=== PATIENT | female | born 1975 | race Caucasian/White ===

== ENCOUNTER 2017-07-03 11:26 | Emergency (ER) | payer OTHER ==
--- NOTE | 2017-07-03 12:21 | CR ---
Chest 1V Frontal INDICATION: sob FINDINGS: Comparison 04/20/2015. No change. Negative AP portable chest x-ray.
[2017-07-03] MEDS: Nitroglycerin 0.4 MG Tab.SL SL PRN ×3 (12:41→12:55)
[2017-07-03] MEDS ORDERED: Nitroglycerin/D5W 25 MG/250 ML BOTTLE IV SCH (12:45)
[2017-07-03] MEDS ORDERED: Ondansetron 4 MG/2 ML SDV IVPUSH ONE (12:55)
[2017-07-03] MEDS ORDERED: Acetaminophen 325 MG Tab PO ONE (13:02)
[2017-07-03 13:03] VITALS: BP 133/79
--- NOTE | 2017-07-03 13:12 | EDM.PDOC ---
ED HPI GENERAL MEDICAL PROBLEM - General Chief Complaint: Chest Pain Stated Complaint: CHEST PAIN Time Seen by Provider: 07/03/17 11:45 Source of Information: Reports: Patient History Limitations: Reports: No Limitations - History of Present Illness INITIAL COMMENTS - FREE TEXT/NARRATIVE: pt arrived with a history of pain between the shoulder blades and pressure on the chest. This was well relieved in the ambulance with nitro twice. Onset: Today, Other (pt has had a few other episodes in the past. ) Duration: Hour(s): Location: Reports: Chest, Other ( between the shoulder blades. 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: - Infectious Disease History Infectious Disease History: Reports: Chicken Pox - Past Surgical History HEENT Surgical History: Reports: Adenoidectomy, LASIK, Tonsillectomy, Other ( See Below) Other HEENT Surgeries/Procedures: nasal surgery Female Surgical History: Reports: Hysterectomy Other Musculoskeletal Surgeries/Procedures:: bilateral bunionectomy, ACL repair Social & Family History - Tobacco Use Smoking Status *Q: Never Smoker Second Hand Smoke Exposure: No - Caffeine Use Caffeine Use: Reports: Coffee, Soda, Tea - Alcohol Use Days Per Week of Alcohol Use: 0 Number of Drinks Per Day: 1 Total Drinks Per Week: 0 - Recreational Drug Use Recreational Drug Use: No ED ROS GENERAL - Review of Systems Review Of Systems: See Below Constitutional: Reports: No Symptoms HEENT: Reports: No Symptoms Respiratory: Reports: No Symptoms Cardiovascular: Reports: Chest Pain, Other (pt has chest pressure and pain between the shoulder blades. ) Endocrine: Reports: No Symptoms GI/Abdominal: Reports: No Symptoms : Reports: No Symptoms Musculoskeletal: Reports: No Symptoms Skin: Reports: No Symptoms Neurological: Reports: No Symptoms ED EXAM, GENERAL - Physical Exam Exam: See Below Free Text/Narrative:: pt arrived with a history of 2 hours of chest pressure and pain between the shoulder blades. She was given nitro in the ambulance and she had good relief within 5 minutes. After arrival here she had recurrent pain. She was given 3 nitros with relief and a nitro drip was hung. She does not have alot of risk factors neg for smoking, neg for elevated cholestrol and lipids, some family history, She does get nauseated when she gets the pain. Exam Limited By: No Limitations General Appearance: Alert, Anxious Ears: Normal TMs Nose: Normal Inspection Throat/Mouth: Normal Inspection Head: Atraumatic Neck: Normal Inspection Respiratory/Chest: No Respiratory Distress Cardiovascular: Regular Rate, Rhythm GI/Abdominal: Soft, Non-Tender Rectal (Female) Exam: Deferred Back Exam: Normal Inspection Extremities: Normal Inspection Neurological: Alert, Oriented, Normal Cognition Psychiatric: Normal Affect Course - Vital Signs Last Recorded V/S: Last Vital Signs Temp 36.8 C 07/03/17 12:43 Pulse 78 07/03/17 12:43 Resp 16 07/03/17 12:43 BP 133/79 07/03/17 13:06 Pulse Ox 93 L 07/03/17 12:43 - Orders/Labs/Meds Orders: Active Orders 24 hr Category Date Time Status EKG Documentation Completion [RC] ASDIRECTED Care 07/03/17 11:39 Active EKG Documentation Completion [RC] ASDIRECTED Care 07/03/17 12:56 Active UA W/MICROSCOPIC [URIN] Urgent Lab 07/03/17 11:39 Uncollected Nitroglycerin/D5W [Nitroglycerin 25 MG/D5W 250 ML] Med 07/03/17 12:45 Active 25 mg in 250 ml IV TITRATE EKG 12 Lead [EK] Routine Ther 07/03/17 11:39 Ordered EKG 12 Lead [EK] Routine Ther 07/03/17 12:56 Ordered Medication Orders Nitroglycerin/Dextrose (Nitroglycerin 25 Mg/D5w 250 Ml) 25 mg in 250 mls @ 6 mls/hr IV TITRATE GRETTA; 10 MCG/MIN PRN Reason: Protocol Last Admin: 07/03/17 13:06 Dose: 10 mcg/min, 6 mls/hr Labs: Laboratory Tests 07/03/17 07/03/17 07/03/17 Range/Units 11:49 11:49 11:49 WBC 9.1 (4.5-11.0) K/uL RBC 4.67 (3.30-5.50) M/uL Hgb 14.2 (12.0-15.0) g/dL Hct 42.3 (36.0-48.0) % MCV 91 (80-98) fL MCH 30 (27-31) pg MCHC 34 (32-36) % Plt Count 275 (150-400) K/uL Neut % (Auto) 75 H (36-66) % Lymph % (Auto) 12 L (24-44) % [place] % (Auto) 10 H (2-6) % Eos % (Auto) 3 (2-4) % Baso % (Auto) 1 (0-1) % Sodium 140 (140-148) mmol/L Potassium 4.1 (3.6-5.2) mmol/L Chloride 105 (100-108) mmol/L Carbon Dioxide 28 (21-32) mmol/L Anion Gap 7.1 (5.0-14.0) mmol/L BUN 18 (7-18) mg/dL Creatinine 0.9 (0.6-1.0) mg/dL Est Cr Clr Drug Dosing 83.36 mL/min Estimated GFR (MDRD) > 60 (>60) Glucose 89 (74-106) mg/dL Calcium 8.3 L (8.5-10.1) mg/dL Total Bilirubin 0.5 (0.2-1.0) mg/dL AST 17 (15-37) U/L ALT 25 (12-78) U/L Alkaline Phosphatase 50 (46-116) U/L Creatine Kinase 81 (26-192) U/L Troponin I < 0.017 (0.000-0.056) ng/mL Total Protein 7.2 (6.4-8.2) g/dL Albumin 3.5 (3.4-5.0) g/dL Globulin 3.7 H (2.3-3.5) g/dL Albumin/Globulin Ratio 1.0 L (1.2-2.2) Meds: Medications Generic Name Dose Route Start Last Admin Trade Name Freq PRN Reason Stop Dose Admin Nitroglycerin/Dextrose 25 mg in 250 mls @ 6 mls/hr 07/03/17 12:45 07/03/17 13 :06 Nitroglycerin 25 Mg/D5w 250 Ml IV 10 mcg/min TITRATE GRETTA 6 mls/hr Protocol Administration 10 MCG/MIN Discontinued Medications Generic Name Dose Route Start Last Admin Trade Name Day PRN Reason Stop Dose Admin Acetaminophen 650 mg 07/03/17 13:02 07/03/17 13:09 Tylenol PO 07/03/17 13:03 650 mg NOW ONE Administration Nitroglycerin 0.4 mg 07/03/17 12:32 07/03/17 12:55 Nitrostat SL 0.4 mg Q5M PRN Administration Chest Pain Ondansetron HCl 4 mg 07/03/17 12:55 07/03/17 13:04 Zofran IVPUSH 07/03/17 12:56 4 mg ONETIME ONE Administration - Re-Assessments/Exams Free Text/Narrative Re-Assessment/Exam: 07/03/17 13:26 her trop is neg, her ekg shows very poor r progression anteriorly, no acute st changes. Departure - Departure Time of Disposition: 13:27 Disposition: Home, Self-Care 01 Condition: Fair Clinical Impression: Angina at rest, Atypical chest pain Referrals: Erick De La Garza MD [Primary Care Provider] - Forms: ED Department Discharge Care Plan Goals: transfer to [facility]. - My Orders Last 24 Hours: My Active Orders 07/03/17 11:39 EKG Documentation Completion [RC] ASDIRECTED UA W/MICROSCOPIC [URIN] Urgent EKG 12 Lead [EK] Routine 07/03/17 12:45 Nitroglycerin/D5W [Nitroglycerin 25 MG/D5W 250 ML] 25 mg in 250 ml IV TITRATE 07/03/17 12:56 EKG Documentation Completion [RC] ASDIRECTED EKG 12 Lead [EK] Routine - Assessment/Plan Last 24 Hours: My Active Orders 07/03/17 11:39 EKG Documentation Completion [RC] ASDIRECTED UA W/MICROSCOPIC [URIN] Urgent EKG 12 Lead [EK] Routine 07/03/17 12:45 Nitroglycerin/D5W [Nitroglycerin 25 MG/D5W 250 ML] 25 mg in 250 ml IV TITRATE 07/03/17 12:56 EKG Documentation Completion [RC] ASDIRECTED EKG 12 Lead [EK] Routine
== END 2017-07-03 13:45 | disposition home or self-care (01) ==
LOC: JP.ED 11:26
DX: I20.9 Angina pectoris, unspecified (principal)
CPT/HCPCS: 36415; 71010; 80053; 82550; 84484; 85025; 93005; 96365; 96375; 99285; A9270; J2405

== ENCOUNTER 2019-04-27 16:48 | Emergency (ER) | payer OTHER ==
[2019-04-27 17:04] VITALS: BP 149/85; PULSE 64
[2019-04-27] MEDS ORDERED: Acetaminophen 500 MG Tab PO ONE (17:19)
--- NOTE | 2019-04-27 17:24 | EDM.PDOC ---
ED HPI GENERAL MEDICAL PROBLEM - General Chief Complaint: Abdominal Pain Stated Complaint: SEVER SIDE PAIN Time Seen by Provider: 04/27/19 17:15 Source of Information: Reports: Patient, Old Records History Limitations: Reports: No Limitations - History of Present Illness INITIAL COMMENTS - FREE TEXT/NARRATIVE: 44 yo female presents with RLQ pain that was present when she woke up today. Sx' s wax and wane, but are gradually getting worse. No self tx. No fever, nausea, diarrhea or constipation. Her only abdominal surgery was for a hysterectomy. Walking makes the pain worse. 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: - Infectious Disease History Infectious Disease History: Reports: Chicken Pox - Past Surgical History HEENT Surgical History: Reports: Adenoidectomy, LASIK, Tonsillectomy, Other ( See Below) Other HEENT Surgeries/Procedures: nasal surgery Cardiovascular Surgical History: Reports: Varicose Female Surgical History: Reports: Hysterectomy Other Musculoskeletal Surgeries/Procedures:: bilateral bunionectomy, ACL repair Social & Family History - Tobacco Use Smoking Status *Q: Never Smoker - Caffeine Use Caffeine Use: Reports: Soda - Recreational Drug Use Recreational Drug Use: No ED ROS GENERAL - Review of Systems Review Of Systems: See Below Constitutional: Reports: No Symptoms HEENT: Reports: No Symptoms Respiratory: Reports: No Symptoms Cardiovascular: Reports: No Symptoms Endocrine: Reports: No Symptoms GI/Abdominal: Reports: Abdominal Pain. Denies: Black Stool, Bloody Stool, Constipation, Diarrhea, Distension, Hematemesis, Hematochezia, Melena, Nausea, Vomiting : Reports: No Symptoms Musculoskeletal: Reports: No Symptoms Skin: Reports: No Symptoms Neurological: Reports: No Symptoms Psychiatric: Reports: No Symptoms ED EXAM, GI/ABD - Physical Exam Exam: See Below Exam Limited By: No Limitations General Appearance: Alert, WD/WN, No Apparent Distress Eyes: Bilateral: Normal Appearance Ears: Normal External Exam, Normal Canal, Hearing Grossly Normal, Normal TMs Nose: Normal Inspection, No Blood Throat/Mouth: Normal Inspection, Normal Lips, Normal Oropharynx, Normal Voice, No Airway Compromise Head: Atraumatic, Normocephalic Neck: Normal Inspection Respiratory/Chest: No Respiratory Distress, Lungs Clear, Normal Breath Sounds, No Accessory Muscle Use Cardiovascular: Regular Rate, Rhythm, No Edema GI/Abdominal Exam: Normal Bowel Sounds, Soft, No Distention, Tender (RLQ). No: Non-Tender, Distended, Guarding, Rigid, Rebound, Abnormal Bowel Sounds, Hernia Back Exam: Normal Inspection. No: CVA Tenderness (R), CVA Tenderness (L) Extremities: Normal Inspection, Normal Range of Motion, Non-Tender, No Pedal Edema Neurological: Alert, Oriented, CN II-XII Intact, Normal Cognition, No Motor/ Sensory Deficits Psychiatric: Normal Affect, Normal Mood Skin Exam: Warm, Dry, Intact, Normal Color, No Rash Course - Vital Signs Last Recorded V/S: Last Vital Signs Temp 36.4 C 04/27/19 17:04 Pulse 64 04/27/19 17:04 Resp 20 04/27/19 17:04 BP 149/85 H 04/27/19 17:04 Pulse Ox 99 04/27/19 17:04 - Orders/Labs/Meds Labs: Laboratory Tests 04/27/19 04/27/19 04/27/19 Range/Units 17:26 17:26 17:26 WBC 8.9 (4.5-11.0) K/uL RBC 4.38 (3.30-5.50) M/uL Hgb 12.9 (12.0-15.0) g/dL Hct 40.1 (36.0-48.0) % MCV 92 (80-98) fL MCH 30 (27-31) pg MCHC 32 (32-36) % Plt Count 247 (150-400) K/uL Sodium 141 (140-148) mmol/L Potassium 4.0 (3.6-5.2) mmol/L Chloride 106 (100-108) mmol/L Carbon Dioxide 27 (21-32) mmol/L Anion Gap 8.1 (5.0-14.0) mmol/L BUN 16 (7-18) mg/dL Creatinine 0.9 (0.6-1.0) mg/dL Est Cr Clr Drug Dosing 81.63 mL/min Estimated GFR (MDRD) > 60 (>60) Glucose 98 (74-106) mg/dL Calcium 8.3 L (8.5-10.1) mg/dL C-Reactive Protein 0.39 H (0.0-0.3) mg/dL Urine Color Urine Appearance Urine pH (4.5-8.0) Ur Specific [place] (1.008-1.030) Urine Protein (NEGATIVE) mg/dL Urine Glucose (UA) (NEGATIVE) mg/dL Urine Ketones (NEGATIVE) mg/dL Urine Occult Blood (NEGATIVE) Urine Nitrite (NEGATIVE) Urine Bilirubin (NEGATIVE) Urine Urobilinogen (NORMAL) mg/dL Ur Leukocyte Esterase (NEGATIVE) Urine RBC (0-5) Urine WBC (0-5) Ur Epithelial Cells Amorphous Sediment Urine Bacteria Urine Mucus 04/27/19 Range/Units 17:41 WBC (4.5-11.0) K/uL RBC (3.30-5.50) M/uL Hgb (12.0-15.0) g/dL Hct (36.0-48.0) % MCV (80-98) fL MCH (27-31) pg MCHC (32-36) % Plt Count (150-400) K/uL Sodium (140-148) mmol/L Potassium (3.6-5.2) mmol/L Chloride (100-108) mmol/L Carbon Dioxide (21-32) mmol/L Anion Gap (5.0-14.0) mmol/L BUN (7-18) mg/dL Creatinine (0.6-1.0) mg/dL Est Cr Clr Drug Dosing mL/min Estimated GFR (MDRD) (>60) Glucose (74-106) mg/dL Calcium (8.5-10.1) mg/dL C-Reactive Protein (0.0-0.3) mg/dL Urine Color Yellow Urine Appearance Clear Urine pH 7.0 (4.5-8.0) Ur Specific [place] 1.005 L (1.008-1.030) Urine Protein Negative (NEGATIVE) mg/dL Urine Glucose (UA) Normal (NEGATIVE) mg/dL Urine Ketones Negative (NEGATIVE) mg/dL Urine Occult Blood Negative (NEGATIVE) Urine Nitrite Negative (NEGATIVE) Urine Bilirubin Negative (NEGATIVE) Urine Urobilinogen Normal (NORMAL) mg/dL Ur Leukocyte Esterase Negative (NEGATIVE) Urine RBC 0-5 (0-5) Urine WBC Not seen (0-5) Ur Epithelial Cells Few Amorphous Sediment Rare Urine Bacteria Not seen Urine Mucus Not seen Meds: Medications Discontinued Medications Generic Name Dose Route Start Last Admin Trade Name Day PRN Reason Stop Dose Admin Acetaminophen 1,000 mg 04/27/19 17:19 04/27/19 17:37 Tylenol Extra Strength PO 04/27/19 17:20 1,000 mg ONETIME ONE Administration Departure - Departure Time of Disposition: 17:55 Disposition: Home, Self-Care 01 Condition: Fair Clinical Impression: RLQ abdominal pain - Discharge Information *PRESCRIPTION DRUG MONITORING PROGRAM REVIEWED*: No *COPY OF PRESCRIPTION DRUG MONITORING REPORT IN PATIENT HERNAN: No Instructions: Abdominal Pain, Adult, [id number] Referrals: PCP,None [Primary Care Provider] - Forms: ED Department Discharge Additional Instructions: Take acetaminophen up to 1000 mg every 6 hrs. Clear liquid diet tonight. If pain is still present in the morning recheck here or in the clinic.
== END 2019-04-27 18:14 | disposition home or self-care (01) ==
LOC: JP.ED 16:48
DX: R10.31 Right lower quadrant pain (principal)
CPT/HCPCS: 36415; 80048; 81001; 85027; 86140; 99284; A9270

== ENCOUNTER 2019-10-29 08:16 | Emergency (ER) | payer BC, OTHER ==
--- NOTE | 2019-10-29 08:23 | EDM.PDOC ---
ED HPI GENERAL MEDICAL PROBLEM - General Chief Complaint: Lower Extremity Injury/Pain Stated Complaint: FALL VIA NORTH Time Seen by Provider: 10/29/19 08:20 Source of Information: Reports: Patient, EMS History Limitations: Reports: No Limitations - History of Present Illness INITIAL COMMENTS - FREE TEXT/NARRATIVE: 44-year-old female was going down some stairs when she turned her ankle, now has significant pain and inability to bear weight due to right ankle pain. She did hear a "pop and a crunch". She received IV fentanyl and IV Toradol in route to the emergency room. Her knee is a little sore but her main complaint is her right ankle. Onset: Sudden Duration: Hour(s): (Within the last hour) Location: Reports: Lower Extremity, Right Associated Symptoms: Reports: No Other Symptoms Right Ankle Pain Score (Numeric/FACES): 5 - Related Data Allergies Allergy/AdvReac Type Severity Reaction Status Date / Time No Known Allergies Allergy Verified 07/03/17 11:32 Home Meds: Home Meds NK [No Known Home Meds] 04/27/19 [History] Past Medical History HEENT History: Reports: Other (See Below) Other HEENT History: wisdom teeth paulled Cardiovascular History: Reports: Arrhythmia Other Cardiovascular History: PVC's, left vent. 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: - Infectious Disease History Infectious Disease History: Reports: Chicken Pox - Past Surgical History HEENT Surgical History: Reports: Adenoidectomy, LASIK, Tonsillectomy, Other ( See Below) Other HEENT Surgeries/Procedures: nasal surgery Cardiovascular Surgical History: Reports: Varicose Female Surgical History: Reports: Hysterectomy Other Musculoskeletal Surgeries/Procedures:: bilateral bunionectomy, ACL repair Social & Family History - Tobacco Use Smoking Status *Q: Never Smoker - Caffeine Use Caffeine Use: Reports: Soda - Recreational Drug Use Recreational Drug Use: No Review of Systems - Review of Systems Review Of Systems: See Below Constitutional: Denies: Fever Respiratory: Reports: No Symptoms Cardiovascular: Reports: No Symptoms Skin: Denies: Bruising Neurological: Denies: Headache Psychiatric: Reports: No Symptoms ED EXAM, GENERAL - Physical Exam Exam: See Below Exam Limited By: No Limitations General Appearance: Alert, No Apparent Distress, Other (Patient looks uncomfortable but not distressed) Head: Atraumatic Respiratory/Chest: No Respiratory Distress Extremities: Other (Patient is very tender to palpation over the lateral malleolus of the right ankle with moderate swelling, no significant deformity) Psychiatric: Normal Affect, Normal Mood Skin Exam: Warm, Dry Course - Vital Signs Last Recorded V/S: Last Vital Signs Temp 97.4 F 10/29/19 08:21 Pulse 79 10/29/19 08:21 Resp 16 10/29/19 08:21 BP 126/70 10/29/19 08:21 Pulse Ox 97 10/29/19 08:21 - Orders/Labs/Meds Orders: Active Orders 24 hr Category Date Time Status DME for Discharge [COMM] Stat Oth 10/29/19 08:47 Ordered DME for Discharge [COMM] Stat Oth 10/29/19 08:47 Ordered - Re-Assessments/Exams Free Text/Narrative Re-Assessment/Exam: 10/29/19 09:05 A right ankle x-ray was obtained. Impression: No visible acute fracture, dislocation or destructive process. Chronic appearing changes as above. Patient was placed in a walking boot and provided crutches, 10 hydrocodone for extra pain control and will recheck next week if not improving satisfactorily. Departure - Departure Time of Disposition: 09:24 Disposition: Home, Self-Care 01 Clinical Impression: Inversion sprain of right ankle Qualifiers: Encounter type: initial encounter Qualified Code(s): S93.401A - Sprain of unspecified ligament of right ankle, initial encounter - Discharge Information Instructions: Ankle Sprain, [id number] Referrals: PCP,None [Primary Care Provider] - Forms: ED Department Discharge Care Plan Goals: Use walking boot and crutches for the next 2 to 4 days and increase activity as tolerated. Recheck next week if not improving satisfactorily. A regular dose of ibuprofen or naproxen will be helpful, and add stronger pain medication if needed. Elevate foot when able. Sepsis Event Note - Evaluation Sepsis Screening Result: No Definite Risk - Focused Exam Vital Signs: Vital Signs Temp Pulse Resp BP Pulse Ox 10/29/19 08:21 97.4 F 79 16 126/70 97 10/29/19 08:18 97.4 F 79 16 126/70 97 Date Exam was Performed: 10/29/19 Time Exam was Performed: 09:36 - My Orders Last 24 Hours: My Active Orders 10/29/19 08:47 DME for Discharge [COMM] Stat DME for Discharge [COMM] Stat - Assessment/Plan Last 24 Hours: My Active Orders 10/29/19 08:47 DME for Discharge [COMM] Stat DME for Discharge [COMM] Stat
[2019-10-29 08:29] VITALS: BP 126/70; PULSE 79
--- NOTE | 2019-10-29 08:58 | CRLCR ---
Indication: Trauma Technique: The images of the right ankle were acquired Comparison: No Findings: There are postoperative changes associated with a hallux. The ankle mortise and syndesmosis appear intact. There is some minor blastic lesion, fracture or dislocation identified. Minor midfoot osteoarthritis is noted. Impression: No visible acute fracture, dislocation or destructive process. Chronic appearing changes as above. Dictated by Ramirez Maciel MD @ Oct 29 2019 8:53AM Signed by Dr. Ramirez Maciel @ Oct 29 2019 8:55AM
== END 2019-10-29 09:25 | disposition home or self-care (01) ==
LOC: JP.ED 08:16
DX: S93.401A Sprain of unspecified ligament of right ankle, initial encounter (principal); X50.9XXA Other and unspecified overexertion or strenuous movements or postures, initial encounter
CPT/HCPCS: 73610-RT; 99284-25